=== PATIENT | male | born 1955 | race Caucasian/White ===

== ENCOUNTER 2021-03-10 11:59 | Emergency (ER) | payer MEDICARE ==
[~2021-03-10] VITALS: Ht 180.3 cm; Wt 77.1 kg
[2021-03-10 13:09] LABS: HEMOGLOBIN 14.4 gm/dL (14.0-18.0); RDW 14.9 % (10.5-14.5); WBC 12.6 thou/uL (4.0-11.0)
[2021-03-10 13:10] LABS: ABSOLUTE NEUTROPHILS 9.9 thou/uL (1.4-8.2); BASOPHILS 0.7 % (0.0-2.0); EOSINOPHILS 1.2 % (0.0-3.0); HEMATOCRIT 45.3 % (42.0-52.0); LYMPHOCYTES 9.2 % (24.0-44.0); MCH 27.9 pg (26.0-34.0); MCHC 31.7 g/dL (28.0-37.0); MCV 88.2 fL (80.0-100.0); MONOCYTES 10.5 % (1.0-8.0); PLATELET COUNT 308 thou/uL (150-400); POLYS 78.4 % (36.0-66.0); RBC 5.14 mil/uL (4.50-6.00)
[2021-03-10 13:25] LABS: CALCIUM 8.8 mg/dL (8.5-10.1)
[2021-03-10 13:37] LABS: ALBUMIN 3.3 g/dL (3.4-5.0); TOTAL BILIRUBIN 0.5 mg/dL (0.2-1.0); TOTAL PROTEIN 6.9 g/dL (6.4-8.2)
[2021-03-10 14:22] LABS: MICROCYTES 1+
[2021-03-10 14:23] LABS: OVALOCYTES FEW
[2021-03-11] MEDS ORDERED: CLEOCIN HCL300 MG PO (08:30)
[2021-03-11] MEDS ORDERED: NORCO7.5 PO (08:30)
[2021-03-11 15:01] VITALS: BP 124/91
== END 2021-03-11 15:03 | disposition still patient (30) ==
LOC: ER 11:59
PROVIDERS: Nurse Practitioner Family
DX: L03.211 Cellulitis of face (principal); Z20.822 Contact with and (suspected) exposure to COVID-19; D72.829 Elevated white blood cell count, unspecified; K04.7 Periapical abscess without sinus